=== PATIENT | male | born 1985 | race Caucasian/White ===

== ENCOUNTER 2017-02-17 11:53 | Emergency (ER) | payer OTHER ==
[2017-02-17 11:59] VITALS: BP 127/80; PULSE 89; RESP 20; TEMP 98.3
--- NOTE | 2017-02-17 13:14 | ED ---
ENT HPI - General Chief complaint: ENT Stated complaint: ear pain Time Seen by Provider: 02/17/17 13:11 Source: patient, RN notes reviewed Mode of arrival: ambulatory Limitations: no limitations - History of Present Illness Initial comments: 31-year-old male presents emergency Department with chief complaint of right ear pain, sore throat. Patient states started a few days ago that initially thought it was ALLERGIES. He states been taking antihistamines no relief. Patient states he has had ear problems on the right and the past. Patient denies any fever, chills. Patient denies any drug ALLERGIES. Denies any cough , chest congestion, shortness of breath, nausea vomiting diarrhea constipation. - Related Data Previous Rx's Medication Instructions Recorded Cephalexin [Keflex] 500 mg PO Q8HR #21 cap 05/04/14 Nystatin/Triamcin 1 applicate TOPICAL BID #15 gm 05/04/14 [Nystatin-Triamcinolone Cream] Amoxicillin 875 mg PO Q12HR #20 tablet 02/17/17 Allergies Allergy/AdvReac Type Severity Reaction Status Date / Time No Known Allergies Allergy Verified 02/17/17 11:59 Review of Systems ROS Statement: Those systems with pertinent positive or pertinent negative responses have been documented in the HPI. ROS Other: All systems not noted in ROS Statement are negative. Past Medical History Past Medical History: No Reported History History of Any Multi-Drug Resistant Organisms: None Reported Past Surgical History: No Surgical Hx Reported Past Psychological History: No Psychological Hx Reported Smoking Status: Current every day smoker Past Alcohol Use History: Occasional Past Drug Use History: None Reported General Exam Limitations: no limitations General appearance: alert, in no apparent distress Head exam: Present: atraumatic, normocephalic, normal inspection Eye exam: Present: normal appearance, PERRL, EOMI. Absent: scleral icterus, conjunctival injection, periorbital swelling ENT exam: Present: normal oropharynx, mucous membranes moist, normal external ear exam. Absent: normal exam, TM's normal bilaterally (right TM erythematous) Neck exam: Present: normal inspection, full ROM. Absent: tenderness, meningismus, lymphadenopathy Respiratory exam: Present: normal lung sounds bilaterally. Absent: respiratory distress, wheezes, rales, rhonchi, stridor Cardiovascular Exam: Present: regular rate, normal rhythm, normal heart sounds. Absent: systolic murmur, diastolic murmur, rubs, gallop, clicks Course Vital Signs 02/17/17 11:57 Temperature 98.3 F Pulse Rate 89 Respiratory 20 Rate Blood Pressure 127/80 O2 Sat by Pulse 100 Oximetry Disposition Clinical Impression: Otitis media Disposition: HOME SELF-CARE Condition: Stable Instructions: Earache (ED) Additional Instructions: Please return to the Emergency Department if symptoms worsen or any other concerns. Prescriptions: Amoxicillin 875 mg PO Q12HR #20 tablet Referrals: None,Stated [Primary Care Provider] - 1-2 days Time of Disposition: 13:14
== END 2017-02-17 13:55 | disposition home or self-care (01) ==
LOC: EC 11:53
DX: H66.91 Otitis media, unspecified, right ear (principal); F17.200 Nicotine dependence, unspecified, uncomplicated
CPT/HCPCS: 99282

== ENCOUNTER 2017-05-26 07:50 | Emergency (ER) | payer OTHER ==
[2017-05-26 07:55] VITALS: BP 121/77; PULSE 89; RESP 20; TEMP 99.4
[2017-05-26] MEDS ORDERED: MAGNESIUM CITRATE 296 ML BOTTLE PO ONE (08:27)
--- NOTE | 2017-05-26 08:38 | ED ---
General Adult HPI - General Chief complaint: Skin/Abscess/Foreign Body Stated complaint: Bleeding Hemroids Time Seen by Provider: 05/26/17 08:09 Source: patient, RN notes reviewed Mode of arrival: ambulatory Limitations: no limitations - History of Present Illness Initial comments: Patient is a 31-year-old male who presents emergency room today with chief complaint of hemorrhoids. He does admit that over the last week she's had increased bouts of constipation. He states he's had hard bowel movements. States he had a hard bowel movement this morning while he was at work and noticed that there was a large amount of blood in the toilet. He states it was a bright red color. States she's been bleeding from the hemorrhoid. States that at this time the bleeding has stopped. Patient states he was advised from work come here to the emergency room to have this checked. Patient denies any other complaints or associated symptoms. Denies any lightheadedness or dizziness. Patient denies any recent fever, chills, shortness of breath, chest pain, back pain, abdominal pain, nausea or vomiting, numbness or tingling, dysuria or hematuria, diarrhea, headaches or visual changes, or any other complaints. - Related Data Home Medications Medication Instructions Recorded Confirmed Multivitamins, Thera [Multivitamin 1 tab PO DAILY 05/26/17 05/26/17 (formulary)] Previous Rx's Medication Instructions Recorded Hydrocortisone Pr Cream 1 applic RECTAL TID #1 tube 05/26/17 [Proctosol-Hc 2.5%] Allergies Allergy/AdvReac Type Severity Reaction Status Date / Time No Known Allergies Allergy Verified 05/26/17 08:25 Review of Systems ROS Statement: Those systems with pertinent positive or pertinent negative responses have been documented in the HPI. ROS Other: All systems not noted in ROS Statement are negative. Past Medical History Past Medical History: No Reported History Additional Past Medical History / Comment(s): hemmorhoids History of Any Multi-Drug Resistant Organisms: None Reported Past Surgical History: No Surgical Hx Reported Past Psychological History: No Psychological Hx Reported Smoking Status: Current every day smoker Past Alcohol Use History: Occasional Past Drug Use History: None Reported General Exam - General Exam Comments Initial Comments: General: The patient is awake and alert, in no distress, and does not appear acutely ill. Eye: Pupils are equal, round and reactive to light, extra-ocular movements are intact. No nystagmus. There is normal conjunctiva bilaterally. No signs of icterus. Ears, nose, mouth and throat: There are moist mucous membranes and no oral lesions. Neck: The neck is supple, there is no tenderness or JVD. Cardiovascular: There is a regular rate and rhythm. No murmur, rub or gallop is appreciated. Respiratory: Lungs are clear to auscultation, respirations are non-labored, breath sounds are equal. No wheezes, stridor, rales, or rhonchi. Gastrointestinal: Soft, non-distended, non-tender abdomen without masses or organomegaly noted. There is no rebound or guarding present. No CVA tenderness. Bowel sounds are unremarkable. Musculoskeletal: Normal ROM, no tenderness. Strength 5/5. Sensation intact. Pulses equal bilaterally 2+. Neurological: A&O x 3. CN II-XII intact, There are no obvious motor or sensory deficits. Coordination appears grossly intact. Speech is normal. Skin: Skin is warm and dry and no rashes or lesions are noted. Psychiatric: Cooperative, appropriate mood & affect, normal judgment. : Patient does have large hemorrhoid at the 3 o'clock position nonthrombosed and nonbleeding Limitations: no limitations Course Vital Signs 05/26/17 07:52 Temperature 99.4 F Pulse Rate 89 Respiratory 20 Rate Blood Pressure 121/77 O2 Sat by Pulse 98 Oximetry Medical Decision Making - Medical Decision Making Patient will be provided a laxative here in the emergency room first constipation was discussed that bouts of constipation and straining were most likely his cause of this hemorrhoid. He'll be given a general surgeon follow- up with there is no improvement. Advised continue the stool softener to keep bowel movements looser. Will also be given a topical cream Disposition Clinical Impression: Hemorrhoid Disposition: HOME SELF-CARE Condition: Good Instructions: Hemorrhoids (ED) Additional Instructions: Please use medication as prescribed. Please use stool softener to keep bowel movements looser as discussed. Please try to prevent straining. Please follow- up with general surgeon/family doctor in the next 2 days of symptoms have not improved. Please return to emergency room if the symptoms increase or worsen or for any other concerns. Prescriptions: Hydrocortisone Pr Cream [Proctosol-Hc 2.5%] 1 applic RECTAL TID #1 tube Referrals: None,Stated [Primary Care Provider] - 1-2 days Cash Gilbert MD [STAFF PHYSICIAN] - 1-2 days Time of Disposition: 08:30
== END 2017-05-26 08:49 | disposition home or self-care (01) ==
LOC: EC 07:50
DX: K64.9 Unspecified hemorrhoids (principal); K59.00 Constipation, unspecified; F17.200 Nicotine dependence, unspecified, uncomplicated; Z79.899 Other long term (current) drug therapy
CPT/HCPCS: 99282

== ENCOUNTER 2017-08-15 08:24 | Emergency (ER) | payer OTHER ==
[2017-08-15] MEDS ORDERED: ASPIRIN 81 MG PO STA (08:30)
[2017-08-15] MEDS ORDERED: IPRATROPIUM-ALBUTEROL 3 ML NEB INHALATION STA (08:48)
[2017-08-15 09:02] LABS: Basophils # (A) 0.1 k/uL (0-0.2); Basophils % (A) 1 %; CH 31.2; CHCM 33.6; Eosinophils # (A) 0.3 k/uL (0-0.7); Eosinophils % (A) 3 %; HCT 48.8 % (39.0-53.0); HDW 2.09; Luc # (Auto) 0.23; Luc % (Auto) 3; Lymphocytes % (A) 35 %; MCH 30.7 pg (25.0-35.0); MCHC 32.9 g/dL (31.0-37.0); MCV 93.5 fL (80.0-100.0); Mean Platelet Volume 6.2; Monocytes # (A) 0.5 k/uL (0-1.0); Monocytes % (A) 6 %; Neutrophils # (A) 4.5 k/uL (1.3-7.7); Neutrophils % (A) 52 %; RBC 5.22 m/uL (4.30-5.90); RDW 12.9 % (11.5-15.5); WBC 8.6 k/uL (3.8-10.6); WBC (Perox) 8.05
--- NOTE | 2017-08-15 09:07 | ED ---
Chest Pain HPI - General Chief Complaint: Chest Pain Stated Complaint: Chest Pain Time Seen by Provider: 08/15/17 08:29 Source: patient, RN notes reviewed Mode of arrival: ambulatory Limitations: no limitations - History of Present Illness Initial Comments: 31-year-old male presents emergency Department chief complaint of chest pain. Patient does admit this is been ongoing over several months but states that he is concerned never really gone away. Patient states it's more centralized left- sided chest pain. He does admit when he takes a deep inspiration does get worse also when he smokes makes it worse. Patient states he does have shortness breath but he does contribute this to his smoking. Denies any recent cold-like symptoms. Denies fever, chills, headache or dizziness. Patient has no cardiac history denies heavy lifting hypertension diabetes. Patient states that nothing really makes the pain feel better other than rubbing over his chest wall. - Related Data Previous Rx's Medication Instructions Recorded Albuterol Sulfate [Proair Hfa] 1 - 2 puff INHALATION Q4HR PRN #1 08/15/17 inhaler Allergies Allergy/AdvReac Type Severity Reaction Status Date / Time No Known Allergies Allergy Verified 08/15/17 08:37 Review of Systems ROS Statement: Those systems with pertinent positive or pertinent negative responses have been documented in the HPI. ROS Other: All systems not noted in ROS Statement are negative. EKG Findings - EKG Comments: EKG Findings:: EKG performed at any cold food normal sinus rhythm with incomplete right bundle branch block rate of 97 AR 156 QRS 98 QT/QTC 344/436 Past Medical History Past Medical History: No Reported History Additional Past Medical History / Comment(s): hemmorhoids History of Any Multi-Drug Resistant Organisms: None Reported Past Surgical History: No Surgical Hx Reported Past Psychological History: No Psychological Hx Reported Smoking Status: Current every day smoker Past Alcohol Use History: Occasional Past Drug Use History: None Reported General Exam Limitations: no limitations Course Vital Signs 08/15/17 08/15/17 08/15/17 08:26 09:02 09:05 Temperature 97.7 F Pulse Rate 85 Pulse Rate [ 84 Right Sitting Radial] Respiratory 18 19 Rate Blood Pressure 118/76 O2 Sat by Pulse 100 Oximetry Chest Pain MDM - MDM 31-year-old male present emergency from for chest discomfort. Patient's symptoms have been present for several months. Patient symptoms are worse when he takes a deep inspiration or when he smokes. Patient lab work, EKG chest x- ray reviewed with him. Patient is advised to stop smoking counseled in detail greater then 3 minutes. Patient was given region states she does feel improved from this. Patient be discharged on an inhaler. Return parameters were discussed. Disposition Clinical Impression: Chest wall pain, Bronchospasm, Tobacco dependence Disposition: HOME SELF-CARE Condition: Stable Instructions: Chest Wall Pain (ED) Additional Instructions: Please return to the Emergency Department if symptoms worsen or any other concerns. Prescriptions: Albuterol Sulfate [Proair Hfa] 1 - 2 puff INHALATION Q4HR PRN #1 inhaler PRN Reason: difficulty in breathing Referrals: None,Stated [Primary Care Provider] - 1-2 days Time of Disposition: 10:02
--- NOTE | 2017-08-15 09:08 | XR ---
EXAMINATION TYPE: XR chest 2V DATE OF EXAM: 08/15/2017 COMPARISON: NONE TECHNIQUE: PA and lateral views submitted. HISTORY: Chest pain FINDINGS: The lungs are clear and there is no pneumothorax, pleural effusion, or focal pneumonia. IMPRESSION: 1. No acute process.
[2017-08-15 09:12] LABS: ALT 23 U/L (21-72); AST 18 U/L (17-59); Alkaline Phosphatase 73 U/L (38-126); Anion Gap 10 mmol/L; Blood Urea Nitrogen 14 mg/dL (9-20); Calcium 9.1 mg/dL (8.4-10.2); Carbon Dioxide 23 mmol/L (22-30); Chloride 107 mmol/L (98-107); Glucose 88 mg/dL (74-99); Non-African American GFR(MDRD) >60 (>60 ml/min/1.73 sqM); Potassium 4.4 mmol/L (3.5-5.1); Sodium 140 mmol/L (137-145); Total Bilirubin 0.5 mg/dL (0.2-1.3); Total Protein 6.7 g/dL (6.3-8.2)
[2017-08-15 09:16] LABS: INR 1.1 (<1.2); Partial Thromboplastin Time 30.2 sec (22.0-30.0); Prothrombin Time 10.6 sec (9.0-12.0)
[2017-08-15 09:24] LABS: Creatine Kinase 77 U/L (55-170)
[2017-08-15 09:36] LABS: Creatine Kinase MB 1.2 ng/mL (0.0-2.4); Troponin I <0.012 ng/mL (0.000-0.034)
[2017-08-15 10:30] VITALS: BP 109/64; PULSE 88; RESP 16; TEMP 97.3
== END 2017-08-15 10:29 | disposition home or self-care (01) ==
LOC: EC 08:24
DX: J98.01 Acute bronchospasm (principal); R07.89 Other chest pain; I45.10 Unspecified right bundle-branch block; F17.200 Nicotine dependence, unspecified, uncomplicated
CPT/HCPCS: 36415; 71020; 80053; 82550; 82553; 83735; 84484; 85025; 85379; 85610; 85730; 93005; 94640; 99285

== ENCOUNTER 2024-06-21 01:10 | Emergency (ER) | payer BC ==
[2024-06-21] MEDS ORDERED: ONDANSETRON 4 MG/2 ML VIAL ONE (02:30)
[2024-06-21] MEDS ORDERED: KETOROLAC 15 MG/ML 1 ML VIAL ONE (02:30)
--- NOTE | 2024-08-03 17:37 | CT ---
EXAM: CT Head Without Intravenous Contrast CLINICAL HISTORY: unable to remove eyebrow piercing, headaches x2days TECHNIQUE: Axial computed tomography images of the head/brain without intravenous contrast. CTDI is 49.1 mGy and DLP is 1125.6 mGy-cm. This CT exam was performed using one or more of the following dose reduction techniques: automated exposure control, adjustment of the mA and/or kV according to patient size, and/or use of iterative reconstruction technique. COMPARISON: No relevant prior studies available. FINDINGS: Brain:No hemorrhage or mass effect. Ventricles:No hydrocephalus. Bones/joints:Unremarkable. Soft tissues:Unremarkable. Sinuses:No air fluid level. Mastoid air cells:Clear. IMPRESSION: No acute hemorrhage, hydrocephalus, or mass effect. Radiologist: Mallory Velasco MD Electronically Signed: 06/21/24 03:07 Study first marked ready to read at 03:03, study last marked ready to read at 03:03, initial results transmitted at 03:07 MTDD
== END 2024-06-21 05:20 | disposition home or self-care (01) ==
LOC: EC 01:10
DX: R51.9 Headache, unspecified (principal)
CPT/HCPCS: 70450; 99284

== ENCOUNTER 2025-02-05 00:43 | Emergency (ER) | payer BC ==
--- NOTE | 2025-02-05 01:10 | ED ---
General Adult HPI - General Chief complaint: Altered Mental Status Stated complaint: AMS Time Seen by Provider: 02/05/25 00:46 Source: patient, EMS, RN notes reviewed Mode of arrival: EMS Limitations: no limitations - History of Present Illness Initial comments: 39-year-old male presents emergency department chief complaint of THC ingestion. Patient states he took 200 mg Domine several hours ago. Patient states he is very tired he states his roommates called EMS because he slept for several hours he has no complaints he is awake alert and orientated. Patient states that he is high. Patient offers no other acute symptoms - Related Data Previous Rx's Medication Instructions Recorded Albuterol Sulfate [Proair Hfa] 1 - 2 puff INHALATION Q4HR PRN #1 08/15/17 inhaler Allergies Allergy/AdvReac Type Severity Reaction Status Date / Time No Known Allergies Allergy Verified 02/05/25 01:01 Review of Systems ROS Statement: Those systems with pertinent positive or pertinent negative responses have been documented in the HPI. ROS Other: All systems not noted in ROS Statement are negative. Past Medical History Past Medical History: No Reported History Additional Past Medical History / Comment(s): hemmorhoids History of Any Multi-Drug Resistant Organisms: None Reported Past Surgical History: No Surgical Hx Reported Past Psychological History: No Psychological Hx Reported Smoking Status: Unknown if ever smoked Past Alcohol Use History: Occasional Past Drug Use History: None Reported General Exam Limitations: no limitations General appearance: alert, in no apparent distress Head exam: Present: atraumatic, normocephalic, normal inspection Eye exam: Present: normal appearance, PERRL, EOMI. Absent: scleral icterus, conjunctival injection, periorbital swelling ENT exam: Present: normal exam, normal oropharynx, mucous membranes moist Neck exam: Present: normal inspection, full ROM. Absent: tenderness, meningismus, lymphadenopathy Respiratory exam: Present: normal lung sounds bilaterally. Absent: respiratory distress, wheezes, rales, rhonchi, stridor Cardiovascular Exam: Present: regular rate, normal rhythm, normal heart sounds. Absent: systolic murmur, diastolic murmur, rubs, gallop, clicks Neurological exam: Present: alert, oriented X3, CN II-XII intact, reflexes normal. Absent: motor sensory deficit Skin exam: Present: warm, dry, intact, normal color. Absent: rash Course Vital Signs 02/05/25 00:52 Temperature 97.8 F Pulse Rate 94 Respiratory 16 Rate Blood Pressure 116/71 O2 Sat by Pulse 96 Oximetry Medical Decision Making - Medical Decision Making Was pt. sent in by a medical professional or institution (MERYL Gonzales, LEGISLATIVE AIDE, urgent care, hospital, or detention...) When possible be specific @ -No Did you speak to anyone other than the patient for history (EMS, parent, family, police, friend...)? What history was obtained from this source @ -No Did you review nursing and triage notes (agree or disagree)? Why? @ -I reviewed and agree with nursing and triage notes Were old charts reviewed (outside hosp., previous admission, EMS record, old EKG, old radiological studies, urgent care reports/EKG's, detention records)? Report findings @ -No old charts were reviewed Differential Diagnosis (chest pain, altered mental status, abdominal pain women, abdominal pain men, vaginal bleeding, weakness, fever, dyspnea, syncope, headache, dizziness, GI bleed, back pain, seizure, CVA, palpatations, mental health, musculoskeletal)? @ -Drug ingestion drug abuse drug intoxication EKG interpreted by me (3pts min.). @ -None X-rays interpreted by me (1pt min.). @ -None done CT interpreted by me (1pt min.). @ -None done U/S interpreted by me (1pt. min.). @ -None done What testing was considered but not performed or refused? (CT, X-rays, U/S, labs)? Why? @ -None What meds were considered but not given or refused? Why? @ -None Did you discuss the management of the patient with other professionals (professionals i.e. MERYL Gonzales, LEGISLATIVE AIDE, lab, RT, psych nurse, foster care social worker, cloth shrinking supervisor, teacher, event security officer, lining caser)? Give summary @ -No Was smoking cessation discussed for >3mins.? @ -No Was critical care preformed (if so, how long)? @ -No Were there social determinants of health that impacted care today? How? (Homelessness, low income, unemployed, alcoholism, drug addiction, transportation, low edu. Level, literacy, decrease access to med. care, assisted, rehab)? @ -No Was there de-escalation of care discussed even if they declined (Discuss DNR or withdrawal of care, Hospice)? DNR status @ -No What co-morbidities impacted this encounter? (DM, HTN, Smoking, COPD, CAD, Cancer, CVA, ARF, Chemo, Hep., AIDS, mental health diagnosis, sleep apnea, morbid obesity)? @ -None Was patient admitted / discharged? Hospital course, mention meds given and route, prescriptions, significant lab abnormalities, going to OR and other pertinent info. @ -[Discharge patient is awake alert and orientated he has no signs distress patient ingested a large amount than normal use of his THC. Patient will be discharged in stable condition return parameters geremias. Undiagnosed new problem with uncertain prognosis? @ -No Drug Therapy requiring intensive monitoring for toxicity (Heparin, Nitro, Insulin, Cardizem)? @ -No Were any procedures done? @ -No Diagnosis/symptom? @ -THC ingestion Acute, or Chronic, or Acute on Chronic? @ -acute Uncomplicated (without systemic symptoms) or Complicated (systemic symptoms)? @ -Uncomplicated Side effects of treatment? @ -No Exacerbation, Progression, or Severe Exacerbation? @ -No Poses a threat to life or bodily function? How? (Chest pain, [place], [place], pneumonia, PE, COPD, DKA, ARF, appy, cholecystitis, CVA, Diverticulitis, Homicidal, Suicidal, threat to staff... and all critical care pts) @ -No Disposition Clinical Impression: Intoxication due to misuse of recreational drug Disposition: HOME SELF-CARE Condition: Stable Additional Instructions: Please return to the Emergency Department if symptoms worsen or any other concerns. Is patient prescribed a controlled substance at d/c from ED?: No Referrals: None,Stated [Primary Care Provider] - 1-2 days Time of Disposition: 01:10
[2025-02-05 01:36] VITALS: BP 118/75; PULSE 91; RESP 18; TEMP 97.7
== END 2025-02-05 01:56 | disposition home or self-care (01) ==
LOC: EC 00:43
DX: T40.711A Poisoning by cannabis, accidental (unintentional), initial encounter (principal)
CPT/HCPCS: 99284